=== PATIENT | female | born 1940 | race Caucasian/White ===

== ENCOUNTER 2018-09-04 10:28 | Outpatient (CLI) | payer MEDICARE, MEDICAID | END 2018-09-04 10:29 | disposition home or self-care (01) | LOC: RAD 10:29 | DX: N63.20 Unspecified lump in the left breast, unspecified quadrant (principal) ==

== ENCOUNTER 2018-09-11 10:04 | Outpatient (CLI) | payer MEDICARE, MEDICAID | END 2018-09-11 10:05 | disposition home or self-care (01) | LOC: RAD 10:04 ==